=== PATIENT | male | born 2000 | race Caucasian/White ===

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

== ENCOUNTER 2020-02-04 18:31 | Emergency (ER) | payer BC ==
[~2020-02-04] VITALS: Ht 185.4 cm; Wt 132.9 kg
[~2020-02-04 18:31] MED LIST changes: +AMOXICILLIN875 MG PO
[2020-02-04] MEDS ORDERED: NORCO 5-325 TA1 EACH PO (21:53)
== END 2020-02-04 22:14 | disposition home or self-care (01) ==
LOC: ED 18:31
DX: S62.101A Fracture of unspecified carpal bone, right wrist, initial encounter for closed fracture (principal); S42.002A Fracture of unspecified part of left clavicle, initial encounter for closed fracture; S52.91XA Unspecified fracture of right forearm, initial encounter for closed fracture; Z79.899 Other long term (current) drug therapy; V87.8XXA Person injured in other specified noncollision transport accidents involving motor vehicle (traffic), initial encounter; Y93.I9 Activity, other involving external motion; Y92.89 Other specified places as the place of occurrence of the external cause; Y99.8 Other external cause status